=== PATIENT | female | born 1970 | race African-American/Black ===

== ENCOUNTER 2016-12-11 07:36 | Inpatient (IN) ==
[2016-12-11] MEDS ORDERED: ASPIRIN 325 MG TABLET PO STA ×2 (08:04→09:22)
[2016-12-11] MEDS ORDERED: ONDANSETRON 4 MG/2 ML VIAL IV PRN (08:04)
[2016-12-11] MEDS ORDERED: ALUM/MAG/SIMETH/LIDO VISC 1:1 30 ML BOTTLE PO STA (08:04)
[2016-12-11] MEDS ORDERED: ENOXAPARIN 100 MG/ML SYRINGE SUBCUT STA (08:04)
[2016-12-11] MEDS ORDERED: NITROGLYCERIN 2% OINT 1 INCH/GM PACK TOP STA (08:04)
[2016-12-11] MEDS ORDERED: MORPHINE 2 MG/1 ML SYRINGE IV PRN (08:04)
[2016-12-11] MEDS ORDERED: ENOXAPARIN 120 MG/0.8 ML SYRINGE SUBCUT ONE (08:09)
[2016-12-11] MEDS ORDERED: MORPHINE 2 MG/1 ML SYRINGE ONE (08:10)
[2016-12-11] MEDS ORDERED: ALUM/MAG/SIMETH/LIDO VISC 1:1 30 ML BOTTLE PO ONE (08:10)
[2016-12-11] MEDS ORDERED: ASPIRIN 325 MG TABLET ONE (08:10)
[2016-12-11] MEDS ORDERED: NITROGLYCERIN 2% OINT 1 INCH/GM PACK TOP ONE (08:10)
[2016-12-11] MEDS ORDERED: ONDANSETRON 4 MG/2 ML VIAL ONE (08:10)
[2016-12-11 08:14] LABS: Basophils # 0.1 10*3/uL (0.0-0.2); Basophils % 0.5 % (0.0-0.8); Eosinophils # 0.1 10*3/uL (0.0-0.87); Eosinophils % 1.1 % (0.00-10.9); Hematocrit 45.4 VOL% (35.7-47.0); Immature Granulocytes % 0.4 %; Immature Granulocytes Absolute 0.04 #; Lymphocytes # 2.3 10*3/uL (1.4-4.0); Lymphocytes % 20.7 % (21.3-54.2); Mean Corpuscular HGB Conc 35.2 GM/DL (32-36); Mean Corpuscular Hemoglobin 29 PG (27-34); Mean Corpuscular Volume 81.7 FL (87-102); Mean Platelet Volume 10.8 FL (9.6-12.0); Monocytes # 0.5 10*3/uL (0.11-0.8); Monocytes % 4.8 % (1.7-12.7); Neutrophils # 7.9 10*3/uL (1.4-7.4); Neutrophils % 72.5 % (38.7-73.9); Platelet Count 220 T/CUMM (130-400); Red Blood Count 5.56 MC/CUMM (3.8-5.5); Red Cell Distribution Width 12.6 % (9.3-17.3); White Blood Count 10.9 T/CUMM (4-12)
--- NOTE | 2016-12-11 08:24 | Emergency Department Note ---
Juan Lacy Manpreet, am scribing for, and in the presence of, Jarocho Thompson MD 08: 17. Donna Lacy James D, MD, personally performed the services described in this documentation, ascribed by Raghavendra Martinez in my presence, and it is both accurate and complete 819 . Arrival - Arrival Chief Complaint: Chest Pain Stated Complaint: chest pain,sob ED Nursing Triage Note: Midsternal chest pain with SOB onset on night - Mode of Arrival: Wheelchair Limitations: No Limitations Source: Patient - History of Present Illness HPI Narrative: Pt is a 46 y/o female, with PMHx HTN and NIDDM, who presents to the ED with non- radiating, burning, and tightening CP with SOB that began on Wednesday night (). Pt took a Tums which relieved the pain in the AM but worsened last night when she magdalena to lay down. Pt c/o dry cough and reports of smoking half pack of cigarettes daily. Pt's PCP is Dr. Hou. No other pains/complaints reported to the ED. Onset (ago): day(s) (12/10/16) Consistency: constant Severity: moderate Severity scale (1-10): 3 Quality: burning, other (Tight) Date of Last Menstrual Period: hyster Allergies/Adverse Reactions: Allergies Allergy/AdvReac Type Severity Reaction Status Date / Time Penicillins Allergy RASH Verified 05/11/15 15:27 Home Medications: Home Medications Medication Instructions Recorded Confirmed Type Clindamycin Cap [Cleocin Cap] 300 mg PO Q6HR 10 Days 05/06/15 Rx HYDROcodone/ACETAMIN 5-325 [[place] 1 tablet PO Q6H #14 tablet 05/06/15 Rx 5-325] Review of System - Review of System 12 point system: reviewed and no additional remarkable complaints except as stated - Review of System Constitutional: Absent: chills, diaphoresis, fever Respiratory: Present: cough, respiratory distress. Absent: wheezing Cardiovascular: Present: chest pain Gastrointestinal: Absent: abdominal pain, nausea, vomiting, diarrhea Genitourinary female: Absent: dysuria Musculoskeletal: Absent: arm pain, back pain Neurological: Absent: headache, weakness, numbness, paresthesias Medical,Surgical,& Family Hx - Medical History Cardio: History of: Hypertension Endocrine: History of: Diabetes Mellitus (NIDDM) - Social History Smoking Status: Current every day smoker Frequency of Alcohol Use: None Type of Drug Use: None Exam Vital Signs: Vital Signs Temperature 97.1 F L 12/11/16 07:39 Pulse Rate 102 H 12/11/16 07:39 Respiratory Rate 22 12/11/16 08:24 Blood Pressure 131/106 12/11/16 07:39 O2 Sat by Pulse Oximetry 98 12/11/16 07:39 GENERAL: This is a well-nourished well-developed morbidly obese black female in no apparent distress. VITAL SIGNS: Reviewed HEENT: Head is atraumatic and normocephalic. Pupils are equal round react to light. Extraocular movements are intact. Oropharynx is benign with moist mucous membranes. NECK: Neck is soft and supple without tenderness. There are no masses. There is no lymphadenopathy. LUNGS: Lungs are clear to auscultation. Chest rises symmetrically. There is no chest wall tenderness. CV: Heart is regular rate and rhythm without murmurs rubs or gallops. ABDOMEN: Abdomen is soft, nontender to palpation. There are no abdominal abnormal masses palpated. There is no organomegaly. Bowel sounds are present and active. SKIN: Skin is warm and dry. No rash. EXTREMITIES: Patient has full range of motion without tenderness. There is no pedal edema. NEUROLOGIC: Awake alert and oriented 4. Cranial nerves II through XII are grossly intact. Motor is 5 over 5 in all extremities bilaterally. Deep tendon reflexes are 2+ and bilaterally equal. Course Course Narrative: Patient was given Lovenox, aspirin, morphine, Zofran, and will be taken to the [facility] for possible PCI. - Consultations Consultation #1: Discussed with Dr. Phoenix. Patient will be taken to the [facility]. Time: 08:55 Results - Labs CBC & BMP: 12/11/16 07:53 12/11/16 07:53 Lab Results: I have reviewed the patients labs Labs: Laboratory Tests 12/11/16 07:53 Troponin I 8.480 H - EKG EKG results: interpreted by ERMD - Impressions EKG: Normal sinus rhythm with sinus arrhythmia, rate 79, low voltage QRS, old inferior MS, nonspecific ST-T wave changes - Diagnostic Findings Procedure: Chest x-ray: image reviewed by me (No infiltrates, no pleural effusion) Critical Care Time Critical Care Time: Yes Total Critical Care Time: 60 Disposition Clinical Impression: Chest pain, Diabetes mellitus, Essential hypertension Case discussed with: patient Disposition: Still a Patient Condition: Stable
[2016-12-11 08:36] LABS: Albumin 3.7 G/DL (3.4-5.0); Bilirubin,Total 0.8 MG/DL (0.2-1.0); Calcium 10.1 MG/DL (8.5-10.1); Magnesium 1.8 MG/DL (1.8-2.4); Osmolality,Calculated 281.2 MOS/KG (273-304); Potassium 4.2 MMOL/L (3.5-5.1); Total Protein 7.4 G/DL (6.4-8.3)
[2016-12-11 08:39] LABS: PT Patient Result 10.3 SECS; Partial Thromboplastin Time 27.9 SECS (0-40)
[2016-12-11] MEDS ORDERED: MORPHINE 2 MG/1 ML SYRINGE IV STA (08:54)
[2016-12-11 08:55] LABS: Apearance,Urine Slightly Hazy (Clear); Bacteria,Urine Occasional /HPF (Few); Bilirubin,Urine Negative (Negative); Blood, Urine Small mg/dL (Negative); Glucose,Urine (UA) >=500 mg/dL (Negative); Ketones,Urine 20 mg/dL (Negative); Nitrite,Urine Negative (Negative); Protein,Urine Negative; RBC,Urine 4 /HPF (0-4); Squamous Epithelial Cell,Urine Occasional /HPF (0-10); Urine Color Yellow (Yellow); Urine Specific Gravity 1.023 (1.001-1.035); Urine Urobilinogen < 2.0 EU/DL (0.2-1.0); WBC,Urine 1 /HPF (0-6)
--- NOTE | 2016-12-11 08:59 | XRay Report ---
XR chest 2V Indication: Chest pain Comparison: None available Findings: The heart and mediastinum are normal in size and configuration. The pulmonary vascularity is normal in caliber. No lung infiltrates, effusions, pneumothorax or other abnormality is demonstrated. Impression: Normal chest x-ray PROCEDURE INTERPRETED AT [facility] Final Report Signed by: Dr. Frank Gonzalez
[2016-12-11 09:00] LABS: Barbiturates Screen,Urine Negative (Negative); Benzodiazepines Screen,Urine Negative (Negative); Cannabinoid Screen,Urine Negative (Negative); Opiate Screen,Urine Negative (Negative); Phencyclidine Screen,Urine Negative (Negative)
[2016-12-11] MEDS ORDERED: METOPROLOL TARTRATE 5 MG/5 ML VIAL IV ONE (09:14)
[2016-12-11] MEDS ORDERED: MAGNESIUM SULF RIDER 2 GM in PREMIX 1 EACH IV PRN (09:22)
[2016-12-11] MEDS ORDERED: POTASSIUM CHLORIDE RIDER 10 MEQ in PREMIX 1 EACH IV PRN (09:22)
[2016-12-11] MEDS ORDERED: METOPROLOL TARTRATE 5 MG/5 ML VIAL IV STA ×2 (09:22→09:39)
[2016-12-11] MEDS ORDERED: diphenhydrAMINE CAP 50 MG CAPSULE PO ONE (09:24)
[2016-12-11] MEDS ORDERED: DIAZEPAM 5 MG TABLET PO ONE (09:25)
--- NOTE | 2016-12-11 09:33 | Cardiology History & Physical ---
Assessment and Plan - Time spent with patient Time spent with patient: Greater than 30 minutes Time spent discussing smoking cessation with patient: 3 to 10 minutes (1) Non-STEMI (non-ST elevated myocardial infarction) Status: Acute Assessment and plan: SEE PLAN OF CARE LISTED BELOW Current Visit: Yes (2) Dyslipidemia Status: Chronic Assessment and plan: SEE PLAN OF CARE LISTED BELOW Current Visit: Yes (3) Obesity Status: Acute Current Visit: Yes (4) Tobacco use Status: Chronic Assessment and plan: SEE PLAN OF CARE LISTED BELOW Current Visit: Yes (5) Sleep disorder Status: Chronic Assessment and plan: SEE PLAN OF CARE LISTED BELOW Current Visit: Yes (6) Diabetes mellitus Status: Chronic Assessment and plan: SEE PLAN OF CARE LISTED BELOW Current Visit: Yes (7) Essential hypertension Status: Chronic Assessment and plan: SEE PLAN OF CARE LISTED BELOW Current Visit: Yes History of Present Illness Chief complaint: chest pain, NSTEMI History of present illness: [facility]: DR. PHOENIX (NEW) Patient is being seen in the emergency department Ms. Loo, 46BF, with risk factors significant for: Hypertension, dyslipidemia , diabetes, tobaccoism, obesity and sedentary lifestyle. Presented to the ED of [facility] this morning after experiencing stuttering chest pain since Wednesday. Chest pain is located in the mid and left chest area radiating to her neck. Associated with shortness of breath, diaphoresis. Denies nausea or vomiting. She can identify no aggravating nor any alleviating factors. At its worst, discomfort is 7 on a scale of 1-10. Currently a 2 on a scale of 1-10. Initially, chest discomfort, described as "squeezing and tightness," began Wednesday evening and she thought this may be heartburn. She took several TUMS and the discomfort eventually resolved. However, continued to have stuttering pain throughout the next several days. This morning, he became so intense she felt as if she should be evaluated in the emergency department. On arrival, troponin is noted to be > 8, EKG does not reflect STEMI but is abnormal and concerning for recent ID. Patient has received Aspirin, therapeutic dose of Lovenox, Nitropaste, Lopressor IV. Labs are stable. Denies a history of vomiting of blood or passing blood in her stool. She denies an allergy to IVP dye or shellfish. No upcoming surgeries are planned. Patient has had tubal ligation. Urine drug screen is pending but denies a history of illicit drug use. Will further discuss with Dr. Phoenix and await additional recommendations. IMPRESSION/PLAN: 1. NSTEMI - patient has received the ACS protocol and is being prepared for cardiac catheterization peer 2. HYPERTENSION - will adjust medications accordingly during the hospital stay 3. DYSLIPIDEMIA - fasting lipid profile. Patient has been diagnosed with dyslipidemia but tells me she has not taken statin drugs. 4. DIABETES - hold Metformin. Sliding scale during hospital stay. Diabetic counseling prior to discharge 5. TOBACCOISM - greater than 5 minutes was spent today discussing the merits of tobacco cessation 6. SLEEP DISORDER - patient has symptoms of sleep apnea per her who is present. She will need outpatient evaluation for sleep disorder. 7. OBESITY - dietary counseling prior to discharge Home Medications Medication Instructions Recorded Confirmed Type Clindamycin Cap [Cleocin Cap] 300 mg PO Q6HR 10 Days 05/06/15 Rx HYDROcodone/ACETAMIN 5-325 [[place] 1 tablet PO Q6H #14 tablet 05/06/15 Rx 5-325] Allergies Allergy/AdvReac Type Severity Reaction Status Date / Time Penicillins Allergy RASH Verified 05/11/15 15:27 Review of systems: REVIEW OF SYSTEMS: - Constitutional Constitutional: Present: Fatigue. Heavy snoring and holding breath while sleeping. Absent: syncope, anorexia, night sweats - EENT Eyes: Absent: blurry vision, loss of vision, diplopia Ears: Absent: decreased hearing, ear pain, ear discharge - Cardiovascular Cardiovascular: Present: chest pain with exertion and chest pain at rest. Recent worsening dyspnea on exertion. Denies edema, palpitations. Absent: chest pain with deep breath, claudication - Respiratory Respiratory: Present: ARTIS, cough. Absent: wheezing, hemoptysis, change in phlegm color - Gastrointestinal Gastrointestinal: Present: constipation. Absent: abdominal pain, hematemesis , hematochezia, melena, change in bowel habits, nausea - Genitourinary Genitourinary: Absent: difficulty urinating, dysuria, urinary hesitancy, flank pain - Musculoskeletal Musculoskeletal: Present: back pain Absent: joint swelling, muscle cramps, muscle weakness - Neurological Neurological: Present: normal gait without frequent falls. Absent: dizziness, hemiparesis - Psychiatric Psychiatric: Absent: anxiety, depression, difficulty concentrating - Endocrine Endocrine: Present: fatigue. Absent: cold intolerance, heat intolerance, polyuria, polyphagia, polydipsia - Hematologic/Lymphatic Hematologic/Lymphatic: Present: easy bruising. Absent: easy bleeding, easy bruisability -Integumentary Integumentary: Absent: lesions, rashes, skin breakdown Medical,Surgical,& Family Hx - Medical History Cardio: History of: Hypertension No history of: Cardiac Dysrhythmia, CAD, ID Endocrine: History of: Diabetes Mellitus (NIDDM) - Social History Smoking Status: Current every day smoker Have you smoked in the last 12 months: Yes Time spent discussing smoking cessation with patient: 3 to 10 minutes Frequency of Alcohol Use: None Type of Drug Use: None Marital Status: Lives With:: Spouse Functional capacity: independent ambulation Cardiology Physical Exam - Constitutional Vitals: Vital Signs Temp Pulse Resp BP Pulse Ox 97.1 F L 102 H 22 131/106 98 12/11/16 07:39 12/11/16 07:39 12/11/16 08:24 12/11/16 07:39 12/11/16 07:39 Intake and Output 12/10/16 12/11/16 12/11/16 23:59 07:59 15:59 Other: Weight 119.748 kg Patient Weight 12/11/16 23:59 Weight 119.748 kg Exam: General: [Appears well with no apparent distress.] [Pleasant and cooperative. ] [Appears comfortable.] HEENT: [PERRL, normocephalic, atraumatic. Mucous membranes moist. No jaundice noted. Conjunctiva moist and clear, sclerae anicteric] Mallampati Airway Class III. Next circumference greater than 44 cm. Neck: Unable to assess for JVD due to habitus. No thyromegaly or lymphadenopathy noted. No carotid bruit appreciated Cardiac: [Regular rate and rhythm.] [No obvious murmur rub or gallop.] Lungs: [Clear to auscultation without accessory muscle use to assist the respiratory pattern.] Oxygen in use via nasal cannula Abdomen: Soft, bowel sounds normoactive. Nontender and nondistended. No abdominal bruit or thrill noted. No masses noted. Musculoskeletal: No fluid collection. Decreased range of motion is noted. Extremities: No clubbing, cyanosis noted. [ No edema noted.] Upper extremity pulses 2+. Lower extremity pulses 2+. Capillary refill less than 3 seconds. Skin: No unusual lesions or rashes. No skin breakdown appreciated. Neuro: Awake, alert and oriented 3. Moves all extremities well without hemiparesis or paralysis. No essential tremor is appreciated. Result/EKG - Labs CBC & BMP: 12/11/16 07:53 12/11/16 07:53 Lab Results: I have reviewed the past 24 hour labs Labs: Laboratory Results - last 24 hr 12/11/16 12/11/16 12/11/16 07:53 07:53 07:53 WBC 10.9 RBC 5.56 H Hgb 16.0 Hct 45.4 MCV 81.7 L MCH 29 MCHC 35.2 RDW 12.6 Plt Count 220 MPV 10.8 Neut % (Auto) 72.5 Lymph % (Auto) 20.7 L [place] % (Auto) 4.8 Eos % (Auto) 1.1 Baso % (Auto) 0.5 Neut # (Auto) 7.9 H Lymph # (Auto) 2.3 [place] # (Auto) 0.5 Eos # (Auto) 0.1 Baso # (Auto) 0.1 Immature Gran % 0.4 Nucleated RBC % 0.0 Immature Gran # 0.04 Nucleated RBCs # 0.00 Immature Plt Fraction 0.0 INR PT Patient/Control Mix Circ Anticoag PTT Sodium 134 L Potassium 4.2 Chloride 100 Carbon Dioxide 22 Anion Gap 16.2 H BUN 9 Creatinine 0.80 GFR Calculation 134 BUN/Creatinine Ratio 11.00 Glucose 367 H Calculated Osmolality 281.2 Calcium 10.1 Magnesium 1.8 Total Bilirubin 0.80 AST 73 H ALT 25 Alkaline Phosphatase 140 H Troponin I 8.480 H Total Protein 7.4 Albumin 3.7 Globulin 3.7 H Albumin/Globulin Ratio 1.0 L Urine Color Urine Appearance Urine pH Ur Specific [place] Urine Protein Urine Glucose (UA) Urine Ketones Urine Blood Urine Nitrate Urine Bilirubin Urine Urobilinogen Urine Leukocytes Urine RBC Urine WBC Ur Squamous Epith Cells Urine Bacteria Ur Culture Indicated? Urine Test Urine Opiates Screen Ur Barbiturates Screen Ur Phencyclidine Scrn U Amphetamine/Methamph U Benzodiazepines Scrn U Cocaine Metab Screen U Cannabinoids Screen 12/11/16 12/11/16 12/11/16 08:23 08:23 08:23 WBC RBC Hgb Hct MCV MCH MCHC RDW Plt Count MPV Neut % (Auto) Lymph % (Auto) [place] % (Auto) Eos % (Auto) Baso % (Auto) Neut # (Auto) Lymph # (Auto) [place] # (Auto) Eos # (Auto) Baso # (Auto) Immature Gran % Nucleated RBC % Immature Gran # Nucleated RBCs # Immature Plt Fraction INR 1.0 PT Patient/Control Mix 10.3 Circ Anticoag PTT 27.9 Sodium Potassium Chloride Carbon Dioxide Anion Gap BUN Creatinine GFR Calculation BUN/Creatinine Ratio Glucose Calculated Osmolality Calcium Magnesium Total Bilirubin AST ALT Alkaline Phosphatase Troponin I Total Protein Albumin Globulin Albumin/Globulin Ratio Urine Color Yellow Urine Appearance Slightly hazy Urine pH 6.0 Ur Specific [place] 1.023 Urine Protein Negative Urine Glucose (UA) >=500 Urine Ketones 20 Urine Blood Small Urine Nitrate Negative Urine Bilirubin Negative Urine Urobilinogen < 2.0 H Urine Leukocytes Small H Urine RBC 4 Urine WBC 1 Ur Squamous Epith Cells Occasional Urine Bacteria Occasional Ur Culture Indicated? Results to follow Urine Test Urine Opiates Screen Negative Ur Barbiturates Screen Negative Ur Phencyclidine Scrn Negative U Amphetamine/Methamph Negative U Benzodiazepines Scrn Negative U Cocaine Metab Screen Negative U Cannabinoids Screen Negative 12/11/16 09:06 WBC RBC Hgb Hct MCV MCH MCHC RDW Plt Count MPV Neut % (Auto) Lymph % (Auto) [place] % (Auto) Eos % (Auto) Baso % (Auto) Neut # (Auto) Lymph # (Auto) [place] # (Auto) Eos # (Auto) Baso # (Auto) Immature Gran % Nucleated RBC % Immature Gran # Nucleated RBCs # Immature Plt Fraction INR PT Patient/Control Mix Circ Anticoag PTT Sodium Potassium Chloride Carbon Dioxide Anion Gap BUN Creatinine GFR Calculation BUN/Creatinine Ratio Glucose Calculated Osmolality Calcium Magnesium Total Bilirubin AST ALT Alkaline Phosphatase Troponin I Total Protein Albumin Globulin Albumin/Globulin Ratio Urine Color Urine Appearance Urine pH Ur Specific [place] Urine Protein Urine Glucose (UA) Urine Ketones Urine Blood Urine Nitrate Urine Bilirubin Urine Urobilinogen Urine Leukocytes Urine RBC Urine WBC Ur Squamous Epith Cells Urine Bacteria Ur Culture Indicated? Urine Test Negative Urine Opiates Screen Ur Barbiturates Screen Ur Phencyclidine Scrn U Amphetamine/Methamph U Benzodiazepines Scrn U Cocaine Metab Screen U Cannabinoids Screen - Diagnostic Findings Procedure: Chest x-ray: report reviewed by me - EKG EKG results: interpreted by me EKG shows: tachycardia, sinus rhythm
[2016-12-11 09:59] LABS: Risk Ratio 4.28; VLDL CHOLESTEROL 19.6 MG/DL
[2016-12-11] MEDS ORDERED: LIDOCAINE 1%/EPI INJ 20 ML VIAL ONE (10:01)
[2016-12-11] MEDS ORDERED: HEPARIN/NACL 0.9% 2 UNITS/ML 1,000 ML IV ONE (10:01)
[2016-12-11 10:05] LABS: Free T4 (Free Thyroxine) 1.16 NG/DL (0.76-1.46); Thyroid Stimulating Hormone 0.727 uIU/ml (0.358-3.74)
[2016-12-11] MEDS ORDERED: fentaNYL 100 MCG/2 ML VIAL ONE (10:09)
[2016-12-11] MEDS ORDERED: MIDAZOLAM 2 MG/2 ML VIAL ONE (10:09)
[2016-12-11] MEDS ORDERED: ENOXAPARIN 60 MG/0.6 ML SYRINGE ONE (10:36)
[2016-12-11] MEDS ORDERED: EPTIFIBATIDE 75 MG/100 ML BOTTLE IV ONE (10:40)
[2016-12-11] MEDS ORDERED: EPTIFIBATIDE 20,000 MCG/10 ML VIAL ONE (10:40)
[2016-12-11] MEDS ORDERED: TICAGRELOR 90 MG TABLET ONE (10:57)
[2016-12-11] MEDS ORDERED: VANCOMYCIN 500 MG VIAL ONE (11:03)
[2016-12-11] MEDS ORDERED: NITROGLYCERIN SL 0.4 MG TABLET SL PRN (11:36)
[2016-12-11] MEDS ORDERED: DEXTROSE 50% 25 GM/50 ML SYRINGE IV PRN ×2 (11:36→11:59)
[2016-12-11] MEDS ORDERED: GLUCAGON 1 MG VIAL IM PRN ×2 (11:36→11:59)
--- NOTE | 2016-12-11 11:36 | Cardiac Catheterization ---
Date of Procedure:: 12/11/16 Pre-op Diagnosis: Non-ST elevation myocardial infarction Post-op diagnosis: same Procedure: Procedures performed: #1 left heart catheterization #2 coronary angiography #3 attempted wiring of the distal right coronary stenosis without success #4 percutaneous intervention to the proximal circumflex coronary artery with a 2.5 x 12 mm Zions drug-eluting stent with a good angiographic result #5 left ventriculography #6 right femoral sheath angiography #7 Angio-Seal closure right femoral arteriotomy site After obtaining informed consent the patient brought to the Patient Accounts Clerk where the right groin was prepped and draped in the usual sterile manner. After local anesthesia and intravenous sedation a needle stick was made to the right femoral artery and a 6 Lithuanian sheath was positioned without difficulty. A Magda left catheter was advanced over a guidewire under fluoroscopic control to the ascending aorta where angiography of left coronary artery was undertaken in multiple views. After adequate angiograms of the left coronary were obtained this catheter was withdrawn and an AMRM right coronary catheter was advanced over a guidewire under fluoroscopic control to the ascending aorta where angiography of the right coronary artery was undertaken in multiple views. After adequate angiograms of the right coronary were obtained this catheter was withdrawn and we attempted PCI of the distal right coronary and proceeded with stenting of the circumflex coronary as described below. After completion of the PCI a pigtail ventriculographic catheter was advanced over a guidewire under fluoroscopic control to the ascending aorta where it was passed across the aortic valve and intraventricular hemodynamics were measured. Patient underwent left ventriculography injecting 35 mL of contrast at 12 mL/s. This was performed from the right anterior oblique projection. After ventriculography this catheter was pulled back from the ventricle to the aorta under hemodynamic monitoring and removed. We elected to proceed with percutaneous intervention of the right coronary artery. A Magda right guide was advanced over a guidewire under fluoroscopic control to the ascending aorta where the right coronary artery was engaged. We attempted wiring the distal right coronary without success. We attempted multiple passes and were unable to get the wire distal. At this point the wire was pulled back into the guide and removed the guide was then removed from the sheath. A Magda left guide was advanced over guidewire under fluoroscopic control the ascending aorta where the left main coronary was engaged. An 014 BMW wire was advanced to the distal circumflex coronary artery and a 2.5 x 12 mm Zions drug-eluting stent was advanced to the area stenosis and deployed to maximum 14 nat. There was good resolution of the stenosis with PAUL grade III flow down the vessel noted. After ascertaining good result in several views the delivery balloon and guidewire removed from the guide. The guide was removed from the sheath. The procedure continued as outlined above. After completion of ventriculogram and removal of the pigtail catheter, the patient underwent right femoral sheath angiography which demonstrated anatomy appropriate for Angio-Seal closure. This was performed without difficulty and good hemostasis was obtained. Hemodynamics: Please see the accompanying data sheet Coronary angiography: Left coronary artery: The left main coronary artery is well-developed and free of significant obstructing lesions. The circumflex coronary artery is a large nondominant vessel it possesses an area of 95% stenosis in its proximal portion. The distal vessel is large and free of significant obstructing lesions. The left anterior descending coronary artery is a large vessel that extends to the apex of the ventricle. The LAD is free of significant obstructing lesions. There is a moderate sized diagonal and has a 80-90% area stenosis at its origin. The remainder of the LAD and its branches are free of significant obstructing lesions. Right coronary artery: The right coronary artery is a large dominant vessel that is subtotally occluded beyond a proximal posterior branch. It severely diseased beyond the origin of this branch such that the posterior laterals are faintly visualized. The PDA is filled via collaterals from the left coronary system. No antegrade filling of the PDA is noted on injection of the pamunkey right coronary artery. Percutaneous coronary intervention: We initially attempted wiring the distal right coronary artery without success. I was not able to get the wire into the PDA. For that reason we abandoned this attempt. My assumption was that this was an old occlusion with good collaterals and was not the culprit vessel. I felt that the circumflex stenosis was a culprit lesion. After positioning the left coronary guide and accessing the circumflex with a guidewire we perform PCI as outlined above and obtained a good angiographic result. There was PAUL grade III flow down the vessel noted at the end procedure. Left ventriculography: After injection of contrast in the left ventricle it is noted be of normal size inferobasal hypo-/akinesis. This is a small area. Overall ejection fraction is in the 50-55% range. Right femoral sheath angiography: After injection of contrast in the right femoral arterial sheath it appears to enter the common femoral above the bifurcation. No evidence of significant disease of the distal iliac, common femoral or bifurcation be noted based on this limited angiographic study. Conclusions: 1: Successful percutaneous intervention of the proximal circumflex using a 2.5 x 12 mm Zions drug-eluting stent drug-eluting stent 2: Distal right and diagonal disease for continued medical therapy and risk factor modification. 3: Inferobasal hypokinesis with overall ejection fraction near normal 4: Angio-Seal closure right from arteriotomy site Discussion and recommendations: The patient presents with chest discomfort and a non-ST elevation myocardial infarction. 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 She is undergone stenting of the proximal circumflex with a good angiographic result and our plan will be to proceed with close observation and aggressive medical therapy. Our findings have been reviewed with the patient and with her family. Surgeon / Physician: Delvis Phoenix - Medications / Follow-up
[2016-12-11] MEDS: ASPIRIN EC 81 MG TABLET PO SCH (11:57)
[2016-12-11] MEDS ORDERED: EPTIFIBATIDE 75 MG/100 ML BOTTLE IV SCH (12:00)
[2016-12-11] MEDS ORDERED: SODIUM CHLORIDE 0.45% 1,000 ML IV SCH (12:00)
[2016-12-11] MEDS ORDERED: VANCOMYCIN INJ 500 MG in SODIUM CHLORIDE 0.9% 100 ML IV ONE (12:00)
--- NOTE | 2016-12-11 12:14 | EKG Report ---
Stationary ECG Study [facility] Test Date: 12/11/2016 12:14:54 PM Pat Name: BALA ROSARIO Department: Room: 107 Gender: F Exit Booth Agent: JAMEE : [id number] Requested by: Jarocho Dominguez Order Number: [id number] Adriana MD: ALEX BARBOSA Intervals [place] Rate: 75 P: 14 SD: 187 QRS: 41 QRSD: 81 T: -7 QT: 403 QTc: 432 Interpretive Statements SINUS RHYTHM WITH SINUS ARRHYTHMIA LOW QRS VOLTAGE IN PRECORDIAL LEADS Electronically Signed On 12-11-16 17:12:24 CDT by ALEX BARBOSA [email or web address]
--- NOTE | 2016-12-11 13:35 | Discharge Summary ---
Hospital Course - Hospital Course Hospital Course: Dr. Phoenix, please reconcile and transmit her discharge meds prior to completing this discharge summary. Pharmacy was not available when I completed this discharge summary. TIRE ADJUSTER: DR. PHOENIX (NEW) SUMMARY: Ms. Loo, 46BF, with risk factors significant for: Hypertension, dyslipidemia, diabetes, tobaccoism, obesity and sedentary lifestyle. Presented to the ED of [facility] December 11, 2016 with NSTEMI. She was taken urgently to the cardiac catheterization lab where Dr. Phoenix performed heart catheterization with the following impression noted: CONCLUSIONS: 1: Successful percutaneous intervention of the proximal circumflex using a 2.5 x 12 mm Zions drug-eluting stent drug-eluting stent 2: Distal right and diagonal disease for continued medical therapy and risk factor modification. 3: Inferobasal hypokinesis with overall ejection fraction near normal 4: Angio-Seal closure right from arteriotomy site DISCUSSION AND RECOMMENDATIONS: The patient presents with chest discomfort and a non-ST elevation myocardial infarction. 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 She is undergone stenting of the proximal circumflex with a good angiographic result and our plan will be to proceed with close observation and aggressive medical therapy. Our findings have been reviewed with the patient and with her family. 2016: Patient has done well without complaints of chest pain, heaviness or tightness. Right groin is soft, free of hematoma or bruit. She has been ambulating without difficulty. Labs are stable as are vital signs. Having that she is met maximal medical therapy, patient is being discharged home in stable condition. She will be given a 2-3 week follow-up with Dr. Phoenix. At that visit the following will be obtained: BMP, magnesium, CBC, EKG. One week prior to the visit with Dr. Phoenix, echocardiogram will be ordered RE: [facility]. Patient is being scheduled for outpatient sleep study evaluation with Dr. Aguilar. Cardiac discharge medications include the following: Aspirin 81 mg orally daily Brilinta 90 mg orally twice daily. Patient is being given a Brilinta prescription card Metoprolol tartrate 50 mg orally twice daily Losartan 12.5 mg orally daily Crestor 40 mg orally each evening Prilosec 20 mg orally daily She will resume her other preadmission noncardiac medications. - Time spent with patient Time with patient DS: Greater than 30 minutes Time spent discussing smoking cessation with patient: 3 to 10 minutes Diagnosis - Discharge Diagnosis (1) Non-STEMI (non-ST elevated myocardial infarction) Status: Resolved (2) Dyslipidemia Status: Chronic (3) Obesity Status: Chronic (4) Tobacco use Status: Chronic (5) Sleep disorder Status: Chronic (6) Diabetes mellitus Status: Chronic (7) Essential hypertension Status: Chronic Specialty Discharge - Follow Up or Referrals Follow up with: Delvis Phoenix MD [Physician] - (Follow-up with Dr. Phoenix in 2-3 weeks. At that visit she will need the following: BMP, magnesium, CBC and EKG. One week prior to visit with Dr. Phoenix she will need an echocardiogram RE: [facility], cardiac eval) Fay Aguilar MD [Physician] - (Outpatient sleep study evaluation soon as appointment is available) Discharge Plan - Discharge Data Disposition: Disch To Home/Self Care Condition at Discharge: Stable Discharge Diet: heart healthy Activity: other (Post cath expectations) Hygiene: other (Post cath expectations) Weight Bearing at Discharge: other (Post cath expectations) Driving: other (Post cath expectations) Contact your physician if you experience:: fever over 101, Difficulty voiding, Redness or swelling, Nausea/Vomiting, Shortness of breath, Bleeding, pain uncontrolled by pain medications - Discharge Medications New Losartan [Cozaar] 12.5 mg PO DAILY #30 tablet Metoprolol Tartrate Tab [Lopressor Tab] 50 mg PO BID #60 tablet Nitroglycerin Sl Tab [Nitrostat] 0.4 mg SL Q5M PRN #100 tablet PRN Reason: Chest Pain Pantoprazole Tab [Protonix Tab] 40 mg PO DAILY #30 tablet Ticagrelor [Brilinta] 90 mg PO BID #60 tablet Aspirin EC Tab 81 mg PO DAILY #30 tablet Rosuvastatin [Crestor] 40 mg PO BEDTIME #60 tablet Continue Pioglitazone HCl [Actos] 30 mg PO DAILY Glimepiride [Amaryl] 4 mg PO DAILY W/BREAKFAST Discontinued NIFEdipine [Nifedipine ER] 90 mg PO DAILY - Follow Up or Referral Follow Up: Fay Aguilar MD [Physician] - (Outpatient sleep study evaluation soon as appointment is available) Delvis Phoenix MD [Physician] - (Follow-up with Dr. Phoenix in 2-3 weeks. At that visit she will need the following: BMP, magnesium, CBC and EKG. One week prior to visit with Dr. Phoenix she will need an echocardiogram RE: [facility], cardiac eval) - Forms/Instructions Instructions: Myocardial Infarction (GEN), Left Heart Catheterization (DC), Heart Healthy Diet (GEN), Coronary Intravascular Stent Placement (DC) Additional Discharge Instructions: Please give patient Brilinta prescription card prior to discharge Exam - Constitutional Vitals: Period Temp Pulse Resp BP Sys/Patel Pulse Ox Last 24 Hr 97.8 F-98.3 F 60-108 13-23 91-162/63-96 Exam: General: [Appears well with no apparent distress.] [Pleasant and cooperative. ] [Appears comfortable.] HEENT: [PERRL, normocephalic, atraumatic. Mucous membranes moist. No jaundice noted. Conjunctiva moist and clear, sclerae anicteric] Neck: No JVD/HJR, no thyromegaly or lymphadenopathy noted. No carotid bruit appreciated Cardiac: [Regular rate and rhythm.] [No murmur rub or gallop.] Lungs: [Clear to auscultation without accessory muscle use to assist the respiratory pattern.] Oxygen in use via nasal cannula Abdomen: Soft, bowel sounds normoactive. Nontender and nondistended. No abdominal bruit or thrill noted. No masses noted. Musculoskeletal: No fluid collection. Decreased range of motion is noted. Extremities: Right groin soft, free of hematoma or bruit. No clubbing, cyanosis noted. [ No edema noted.] Upper extremity pulses 2+. Lower extremity pulses 2+. Capillary refill less than 3 seconds. Skin: No unusual lesions or rashes. No skin breakdown appreciated. Neuro: Awake, alert and oriented 3. Moves all extremities well without hemiparesis or paralysis. No essential tremor is appreciated. Discharge Results Procedures and tests throughout hospitalization: Pending Orders 12/11/16 Urine Culture Routine 12/11/16 09:31 CL heart Routine 12/11/16 11:40 MRSA Surveillence, Inf Control Routine 12/13/16 04:00 BMP w/ Mg [Basic Metabolic Panel w/Mg] IN AM 12/14/16 04:00 BMP w/ Mg [Basic Metabolic Panel w/Mg] IN AM Labs on day of discharge: Labs from last 24 hours 12/12/16 12/12/1612/12/17 04:33 04:33 04:33 WBC 10.9 RBC 5.11 Hgb 14.8 Hct 41.8 MCV 81.8 L MCH 29 MCHC 35.4 RDW 12.8 Plt Count 212 MPV 10.9 Neut % (Auto) 63.3 Lymph % (Auto) 27.3 [place] % (Auto) 7.3 Eos % (Auto) 1.2 Baso % (Auto) 0.5 Neut # (Auto) 6.9 Lymph # (Auto) 3.0 [place] # (Auto) 0.8 Eos # (Auto) 0.1 Baso # (Auto) 0.1 Immature Gran % 0.4 Nucleated RBC % 0.0 Immature Gran # 0.04 Nucleated RBCs # 0.00 Immature Plt Fraction 0.0 Sodium 138 Potassium 3.5 Chloride 105 Carbon Dioxide 25 Anion Gap 11.5 BUN 14 Creatinine 0.70 GFR Calculation 156 BUN/Creatinine Ratio 20.00 Glucose 226 H POC Glucose Calculated Osmolality 282.7 Calcium 8.9 Magnesium Troponin I 12.400 H D Triglycerides Cholesterol LDL Cholesterol VLDL Cholesterol HDL Cholesterol Heart Disease Risk Ratio Free T4 TSH 3rd Generation 12/12/16 12/11/16 12/11/16 04:33 20:04 16:03 WBC RBC Hgb Hct MCV MCH MCHC RDW Plt Count MPV Neut % (Auto) Lymph % (Auto) [place] % (Auto) Eos % (Auto) Baso % (Auto) Neut # (Auto) Lymph # (Auto) [place] # (Auto) Eos # (Auto) Baso # (Auto) Immature Gran % Nucleated RBC % Immature Gran # Nucleated RBCs # Immature Plt Fraction Sodium 139 Potassium 3.5 Chloride 105 Carbon Dioxide 27 Anion Gap 10.5 BUN 14 Creatinine 0.70 GFR Calculation 156 BUN/Creatinine Ratio 20.00 Glucose 207 H POC Glucose 299 H 301 H Calculated Osmolality 283.5 Calcium 8.7 Magnesium 2.1 Troponin I Triglycerides Cholesterol LDL Cholesterol VLDL Cholesterol HDL Cholesterol Heart Disease Risk Ratio Free T4 TSH 3rd Generation 12/11/16 12/11/16 08:23 08:23 WBC RBC Hgb Hct MCV MCH MCHC RDW Plt Count MPV Neut % (Auto) Lymph % (Auto) [place] % (Auto) Eos % (Auto) Baso % (Auto) Neut # (Auto) Lymph # (Auto) [place] # (Auto) Eos # (Auto) Baso # (Auto) Immature Gran % Nucleated RBC % Immature Gran # Nucleated RBCs # Immature Plt Fraction Sodium Potassium Chloride Carbon Dioxide Anion Gap BUN Creatinine GFR Calculation BUN/Creatinine Ratio Glucose POC Glucose Calculated Osmolality Calcium Magnesium Troponin I Triglycerides 98 Cholesterol 291 H LDL Cholesterol 195.0 VLDL Cholesterol 19.6 HDL Cholesterol 68 H Heart Disease Risk Ratio 4.28 Free T4 1.16 TSH 3rd Generation 0.727 Preliminary micro results at discharge 12/11/16 11:40 MRSA Surveillance Culture - Preliminary Nasal Passage No MRSA isolated. - Imaging and Cardiology Cardiology Procedure: report reviewed by me Procedure: Chest x-ray: report reviewed by me DS: Provider Date of admission: 12/11/16 08:58 Primary care physician: . No PCP Attending physician on admission: Delvis Phoenix MD Consults: 12/11/16 11:15 Consult to Cardiac Rehabilitation [CONS] Routine Reason for Cardiac Rehabilitation: Other Consult Comment: All of the above 12/11/16 11:36 Consult to Cardiac Rehabilitation [CONS] Routine Reason for Cardiac Rehabilitation: Risk Factor Modification Other Consult Comment: Evaluate and recommend 12/11/16 11:39 Consult to Cardiac Rehabilitation [CONS] Routine Reason for Cardiac Rehabilitation: Risk Factor Modification Other Consult Comment: Evaluate and recommend 12/11/16 12:05 Consult to Dietitian [CONS] Routine Reason for Dietitian: Other 12/11/16 12:13 Consult to Pastoral Services [CONS] Routine Comment: Pastoral Screen: Request Emergency Services Professional Visit Pastoral Screen Source of Request: Patient Discharging clinician: Lisa Helms NP
[2016-12-11] MEDS: INSULIN REGULAR 100 UNIT/ML SUBCUT SCH ×2 (16:47→20:29)
[2016-12-11] MEDS: METOPROLOL TARTRATE 50 MG TABLET PO SCH (20:25)
[2016-12-11] MEDS ORDERED: ROSUVASTATIN 20 MG TABLET PO SCH (21:00)
[2016-12-11] MEDS ORDERED: ZALEPLON 5 MG CAPSULE PO PRN (23:14)
[2016-12-12 04:53] LABS: Basophils # 0.1 10*3/uL (0.0-0.2); Basophils % 0.5 % (0.0-0.8); Eosinophils # 0.1 10*3/uL (0.0-0.87); Eosinophils % 1.2 % (0.00-10.9); Hematocrit 41.8 VOL% (35.7-47.0); Hemoglobin 14.8 GM/DL (12.0-16.0); Immature Granulocytes % 0.4 %; Immature Granulocytes Absolute 0.04 #; Lymphocytes % 27.3 % (21.3-54.2); Mean Corpuscular HGB Conc 35.4 GM/DL (32-36); Mean Corpuscular Hemoglobin 29 PG (27-34); Mean Corpuscular Volume 81.8 FL (87-102); Mean Platelet Volume 10.9 FL (9.6-12.0); Monocytes # 0.8 10*3/uL (0.11-0.8); Monocytes % 7.3 % (1.7-12.7); Neutrophils # 6.9 10*3/uL (1.4-7.4); Neutrophils % 63.3 % (38.7-73.9); Platelet Count 212 T/CUMM (130-400); Red Blood Count 5.11 MC/CUMM (3.8-5.5); Red Cell Distribution Width 12.8 % (9.3-17.3); White Blood Count 10.9 T/CUMM (4-12)
[2016-12-12 05:27] LABS: Calcium 8.7 MG/DL (8.5-10.1); Magnesium 2.1 MG/DL (1.8-2.4); Osmolality,Calculated 283.5 MOS/KG (273-304); Potassium 3.5 MMOL/L (3.5-5.1)
[2016-12-12 05:47] LABS: Calcium 8.9 MG/DL (8.5-10.1); Osmolality,Calculated 282.7 MOS/KG (273-304); Potassium 3.5 MMOL/L (3.5-5.1)
[2016-12-12] MEDS: INSULIN REGULAR 100 UNIT/ML SUBCUT SCH ×2 (07:49→12:25)
[2016-12-12] MEDS ORDERED: GLIMEPIRIDE 4 MG TABLET PO SCH (08:00)
[2016-12-12] MEDS ORDERED: PIOGLITAZONE 15 MG TABLET PO SCH (09:00)
[2016-12-12] MEDS ORDERED: LOSARTAN 25 MG TABLET PO SCH (09:00)
[2016-12-12] MEDS ORDERED: TICAGRELOR 90 MG TABLET PO SCH (09:00)
[2016-12-12] MEDS ORDERED: PANTOPRAZOLE 40 MG TABLET PO SCH (09:00)
[2016-12-12] MEDS: METOPROLOL TARTRATE 50 MG TABLET PO SCH (09:09)
[2016-12-12] MEDS: ASPIRIN EC 81 MG TABLET PO SCH (09:09)
--- NOTE | 2016-12-12 10:07 | EKG Report ---
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
--- NOTE | 2016-12-12 10:08 | EKG Report ---
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
[2016-12-12 12:14] VITALS: BP 121/82
== END 2016-12-12 14:13 | disposition home or self-care (01) | DRG 247 ==
LOC: N.ED 07:36 → N.EDINP 08:58 → N.ICU 09:41
PROVIDERS: ADMIT Internal Medicine Interventional Cardiology; ATTEND Internal Medicine Interventional Cardiology
PROC: CLCCHCL (ICD-10-PCS; 2016-12-11 14:45)

== ENCOUNTER 2017-01-23 06:52 | Inpatient (IN) ==
[2017-01-23] MEDS ORDERED: FUROSEMIDE 20 MG/2 ML VIAL ONE (07:08)
[2017-01-23] MEDS ORDERED: FUROSEMIDE 40 MG/4 ML VIAL ONE (07:08)
[2017-01-23] MEDS ORDERED: FUROSEMIDE 40 MG/4 ML VIAL IV STA (07:39)
[2017-01-23 07:56] LABS: Basophils # 0.1 10*3/uL (0.0-0.2); Basophils % 0.6 % (0.0-0.8); Eosinophils # 0.2 10*3/uL (0.0-0.87); Eosinophils % 2.1 % (0.00-10.9); Hematocrit 45.9 VOL% (35.7-47.0); Hemoglobin 15.1 GM/DL (12.0-16.0); Immature Granulocytes % 0.4 %; Immature Granulocytes Absolute 0.04 #; Lymphocytes # 2.3 10*3/uL (1.4-4.0); Lymphocytes % 22.4 % (21.3-54.2); Mean Corpuscular HGB Conc 32.9 GM/DL (32-36); Mean Corpuscular Hemoglobin 28 PG (27-34); Mean Corpuscular Volume 85.5 FL (87-102); Mean Platelet Volume 10.9 FL (9.6-12.0); Monocytes # 0.5 10*3/uL (0.11-0.8); Monocytes % 4.5 % (1.7-12.7); Neutrophils # 7.3 10*3/uL (1.4-7.4); Platelet Count 233 T/CUMM (130-400); Red Blood Count 5.37 MC/CUMM (3.8-5.5); Red Cell Distribution Width 13.5 % (9.3-17.3); White Blood Count 10.4 T/CUMM (4-12)
[2017-01-23 08:01] LABS: INR 0.9
[2017-01-23 08:16] LABS: Alanine Aminotransferase 28 U/L (13-56); Albumin 3.3 G/DL (3.4-5.0); Alkaline Phosphatase 102 U/L (45-117); Aspartate Amino Transferase 23 U/L (0-37); Bilirubin,Indirect 0.3 MG/DL (0.0-1.0); Blood Urea Nitrogen 20 MG/DL (7-18); Calcium 8.7 MG/DL (8.5-10.1); Glucose 256 MG/DL (74-106); Osmolality,Calculated 288.5 MOS/KG (273-304); Potassium 3.8 MMOL/L (3.5-5.1); Sodium 139 MMOL/L (136-145); Total Protein 7.4 G/DL (6.4-8.3)
[2017-01-23 08:17] LABS: Troponin I Only 0.131 NG/ML (0.00-0.045)
[2017-01-23] MEDS ORDERED: MAGNESIUM SULF RIDER 4 GM in PREMIX 1 EACH IV PRN (10:04)
[2017-01-23] MEDS ORDERED: GLUCAGON 1 MG VIAL IM PRN (10:04)
[2017-01-23] MEDS ORDERED: ONDANSETRON 4 MG/2 ML VIAL IV PRN (10:04)
[2017-01-23] MEDS ORDERED: MAGNESIUM SULF RIDER 2 GM in PREMIX 1 EACH IV PRN (10:04)
[2017-01-23] MEDS ORDERED: DEXTROSE 50% 25 GM/50 ML VIAL IV PRN (10:04)
[2017-01-23] MEDS ORDERED: PNEUMOCOCCAL VACCINE (13 VALENT) 0.5 ML SYRINGE IM ONE (11:16)
[2017-01-23] MEDS ORDERED: INFLUENZA VIRUS VACCINE 0.5 ML SYRINGE IM ONE (11:16)
[2017-01-23] MEDS ORDERED: METOPROLOL TARTRATE 25 MG TABLET PO ONE (11:50)
[2017-01-23] MEDS: ACETAMINOPHEN 325 MG TABLET PO PRN ×2 (12:41→22:11)
[2017-01-23] MEDS: ASPIRIN EC 81 MG TABLET PO SCH (12:41)
[2017-01-23] MEDS: ISOSORBIDE MONONITRATE 30 MG TABLET PO SCH (12:42)
[2017-01-23] MEDS: GLIMEPIRIDE 4 MG TABLET PO SCH ×2 (12:42→20:33)
[2017-01-23] MEDS: INSULIN LISPRO 100 UNIT/ML SUBCUT SCH ×3 (13:20→21:15)
[2017-01-23] MEDS: TICAGRELOR 90 MG TABLET PO SCH ×2 (14:09→20:33)
[2017-01-23] MEDS ORDERED: FUROSEMIDE 40 MG/4 ML VIAL IV SCH (16:00)
[2017-01-23] MEDS: FUROSEMIDE 40 MG/4 ML VIAL IV SCH (16:28)
[2017-01-23] MEDS: PANTOPRAZOLE 40 MG TABLET PO SCH ×2 (16:39→17:21)
[2017-01-23] MEDS: ROSUVASTATIN 20 MG TABLET PO SCH (20:33)
[2017-01-23] MEDS: METOPROLOL TARTRATE 25 MG TABLET PO SCH (20:33)
[2017-01-23] MEDS ORDERED: METOPROLOL TARTRATE 25 MG TABLET PO SCH (21:00)
[2017-01-23] MEDS: MELATONIN 3 MG TABLET PO PRN (22:12)
[2017-01-24 06:23] LABS: Basophils % 0.2 % (0.0-0.8); Eosinophils # 0.1 10*3/uL (0.0-0.87); Eosinophils % 1.4 % (0.00-10.9); Hematocrit 43.4 VOL% (35.7-47.0); Hemoglobin 14.5 GM/DL (12.0-16.0); Immature Granulocytes % 0.2 %; Immature Granulocytes Absolute 0.02 #; Lymphocytes # 2.2 10*3/uL (1.4-4.0); Lymphocytes % 26.8 % (21.3-54.2); Mean Corpuscular HGB Conc 33.4 GM/DL (32-36); Mean Corpuscular Hemoglobin 28 PG (27-34); Mean Corpuscular Volume 85.1 FL (87-102); Mean Platelet Volume 11.3 FL (9.6-12.0); Monocytes # 0.7 10*3/uL (0.11-0.8); Neutrophils % 62.4 % (38.7-73.9); Platelet Count 219 T/CUMM (130-400); Red Cell Distribution Width 13.7 % (9.3-17.3); White Blood Count 8.1 T/CUMM (4-12)
[2017-01-24 06:54] LABS: Potassium 4.3 MMOL/L (3.5-5.1)
[2017-01-24] MEDS: FUROSEMIDE 40 MG/4 ML VIAL IV SCH ×2 (08:10→16:11)
[2017-01-24] MEDS: METOPROLOL TARTRATE 25 MG TABLET PO SCH ×2 (08:11→20:47)
[2017-01-24] MEDS: GLIMEPIRIDE 4 MG TABLET PO SCH ×2 (08:11→20:47)
[2017-01-24] MEDS: ASPIRIN EC 81 MG TABLET PO SCH (08:11)
[2017-01-24] MEDS: TICAGRELOR 90 MG TABLET PO SCH ×2 (08:11→20:47)
[2017-01-24] MEDS: ISOSORBIDE MONONITRATE 30 MG TABLET PO SCH (08:12)
[2017-01-24] MEDS: INSULIN LISPRO 100 UNIT/ML SUBCUT SCH ×4 (08:12→20:48)
[2017-01-24] MEDS: LOSARTAN 25 MG TABLET PO SCH (08:12)
[2017-01-24] MEDS: PANTOPRAZOLE 40 MG TABLET PO SCH (08:12)
[2017-01-24] MEDS ORDERED: MAGNESIUM SULF RIDER 2 GM in PREMIX 1 EACH IV PRN (12:02)
[2017-01-24] MEDS ORDERED: POTASSIUM CHLORIDE RIDER 10 MEQ in PREMIX 1 EACH IV PRN (12:02)
[2017-01-24] MEDS ORDERED: DIAZEPAM 5 MG TABLET PO ONE (12:02)
[2017-01-24] MEDS: ENOXAPARIN 40 MG/0.4 ML SYRINGE SUBCUT SCH (16:11)
[2017-01-24] MEDS: ROSUVASTATIN 20 MG TABLET PO SCH (20:47)
[2017-01-24] MEDS: MELATONIN 3 MG TABLET PO PRN (20:47)
[2017-01-25 04:56] LABS: Hematocrit 43.4 VOL% (35.7-47.0); Hemoglobin 14.6 GM/DL (12.0-16.0); Lymphocytes % 32.7 % (21.3-54.2); Mean Corpuscular HGB Conc 33.6 GM/DL (32-36); Mean Corpuscular Hemoglobin 28 PG (27-34); Mean Corpuscular Volume 83.8 FL (87-102); Mean Platelet Volume 10.7 FL (9.6-12.0); Neutrophils % 55.1 % (38.7-73.9); Platelet Count 213 T/CUMM (130-400); Red Blood Count 5.18 MC/CUMM (3.8-5.5); Red Cell Distribution Width 13.5 % (9.3-17.3); White Blood Count 7.3 T/CUMM (4-12)
[2017-01-25 04:57] LABS: Basophils # 0.1 10*3/uL (0.0-0.2); Basophils % 0.7 % (0.0-0.8); Eosinophils # 0.2 10*3/uL (0.0-0.87); Eosinophils % 3.2 % (0.00-10.9); Immature Granulocytes % 0.3 %; Immature Granulocytes Absolute 0.02 #; Lymphocytes # 2.4 10*3/uL (1.4-4.0); Monocytes # 0.6 10*3/uL (0.11-0.8)
[2017-01-25 05:24] LABS: Calcium 8.8 MG/DL (8.5-10.1); Osmolality,Calculated 286.1 MOS/KG (273-304); Potassium 3.7 MMOL/L (3.5-5.1)
[2017-01-25 05:28] LABS: Calcium 9.1 MG/DL (8.5-10.1); Magnesium 2.1 MG/DL (1.8-2.4); Osmolality,Calculated 290.8 MOS/KG (273-304); Potassium 3.7 MMOL/L (3.5-5.1)
[2017-01-25] MEDS ORDERED: DIAZEPAM 5 MG TABLET ONE (08:03)
[2017-01-25] MEDS: INSULIN LISPRO 100 UNIT/ML SUBCUT SCH ×4 (08:10→20:50)
[2017-01-25] MEDS ORDERED: HEPARIN/NACL 0.9% 2 UNITS/ML 1,000 ML IV ONE (08:33)
[2017-01-25] MEDS ORDERED: LIDOCAINE 1%/EPI INJ 20 ML VIAL ONE (08:33)
[2017-01-25] MEDS ORDERED: diphenhydrAMINE CAP 25 MG CAPSULE PO ONE (08:45)
[2017-01-25] MEDS: LOSARTAN 25 MG TABLET PO SCH (09:00)
[2017-01-25] MEDS: PANTOPRAZOLE 40 MG TABLET PO SCH (09:00)
[2017-01-25] MEDS: METOPROLOL TARTRATE 25 MG TABLET PO SCH ×2 (09:00→20:49)
[2017-01-25] MEDS: TICAGRELOR 90 MG TABLET PO SCH ×2 (09:00→20:49)
[2017-01-25] MEDS: ISOSORBIDE MONONITRATE 30 MG TABLET PO SCH (09:00)
[2017-01-25] MEDS: ASPIRIN EC 81 MG TABLET PO SCH (09:00)
[2017-01-25] MEDS ORDERED: MIDAZOLAM 2 MG/2 ML VIAL ONE ×2 (09:14→09:33)
[2017-01-25] MEDS ORDERED: fentaNYL 100 MCG/2 ML VIAL ONE (09:14)
[2017-01-25] MEDS: GLIMEPIRIDE 4 MG TABLET PO SCH ×2 (09:18→20:49)
[2017-01-25] MEDS ORDERED: ENOXAPARIN 60 MG/0.6 ML SYRINGE ONE (09:41)
[2017-01-25] MEDS ORDERED: NITROGLYCERIN DRIP 50 MG/250 ML BOTTLE IV ONE (09:54)
[2017-01-25] MEDS ORDERED: DEXTROSE 5% NACL 0.45% 1,000 ML IV SCH (10:30)
[2017-01-25] MEDS: FUROSEMIDE 40 MG/4 ML VIAL IV SCH ×2 (10:58→16:40)
[2017-01-25] MEDS: ENOXAPARIN 40 MG/0.4 ML SYRINGE SUBCUT SCH (15:45)
[2017-01-25] MEDS: ROSUVASTATIN 20 MG TABLET PO SCH (20:49)
[2017-01-25] MEDS: MELATONIN 3 MG TABLET PO PRN (20:49)
[2017-01-26 03:48] LABS: Basophils % 0.4 % (0.0-0.8); Eosinophils # 0.2 10*3/uL (0.0-0.87); Eosinophils % 2.2 % (0.00-10.9); Hematocrit 43.2 VOL% (35.7-47.0); Hemoglobin 14.5 GM/DL (12.0-16.0); Immature Granulocytes % 0.2 %; Immature Granulocytes Absolute 0.02 #; Lymphocytes # 1.8 10*3/uL (1.4-4.0); Lymphocytes % 21.7 % (21.3-54.2); Mean Corpuscular HGB Conc 33.6 GM/DL (32-36); Mean Corpuscular Hemoglobin 28 PG (27-34); Mean Platelet Volume 10.5 FL (9.6-12.0); Monocytes # 0.8 10*3/uL (0.11-0.8); Monocytes % 9.6 % (1.7-12.7); Neutrophils # 5.5 10*3/uL (1.4-7.4); Neutrophils % 65.9 % (38.7-73.9); Platelet Count 201 T/CUMM (130-400); Red Blood Count 5.14 MC/CUMM (3.8-5.5); Red Cell Distribution Width 13.3 % (9.3-17.3); White Blood Count 8.3 T/CUMM (4-12)
[2017-01-26 04:09] LABS: Calcium 8.8 MG/DL (8.5-10.1); Magnesium 2.2 MG/DL (1.8-2.4); Osmolality,Calculated 283.1 MOS/KG (273-304); Potassium 3.9 MMOL/L (3.5-5.1)
[2017-01-26] MEDS: INSULIN LISPRO 100 UNIT/ML SUBCUT SCH ×2 (08:19→12:42)
[2017-01-26] MEDS: FUROSEMIDE 40 MG/4 ML VIAL IV SCH (09:12)
[2017-01-26] MEDS: ISOSORBIDE MONONITRATE 30 MG TABLET PO SCH (09:53)
[2017-01-26] MEDS: ASPIRIN EC 81 MG TABLET PO SCH (09:53)
[2017-01-26] MEDS: GLIMEPIRIDE 4 MG TABLET PO SCH (09:53)
[2017-01-26] MEDS: METOPROLOL TARTRATE 25 MG TABLET PO SCH (09:54)
[2017-01-26] MEDS: PANTOPRAZOLE 40 MG TABLET PO SCH (09:58)
[2017-01-26] MEDS: TICAGRELOR 90 MG TABLET PO SCH (09:58)
[2017-01-26] MEDS: LOSARTAN 25 MG TABLET PO SCH (09:58)
[2017-01-26 11:36] VITALS: BP 117/78
[2017-01-26] MEDS: ENOXAPARIN 40 MG/0.4 ML SYRINGE SUBCUT SCH (15:32)
== END 2017-01-26 15:49 | disposition home or self-care (01) | DRG 247 ==
LOC: EDBD → EDUNIT# → N.EDINP 06:52 → N.ED 06:52 → OBSVTOIN 09:04 → SUATTDRO 09:04 → N.EDINP 10:26 → N.4E 11:00 → N.TELEN 01-24 12:51
PROVIDERS: ADMIT Internal Medicine; ATTEND Internal Medicine
PROC: CLCCHCL (ICD-10-PCS; 2017-01-25 10:45)

== ENCOUNTER 2019-12-16 14:44 | Inpatient (IN) ==
[2019-12-16 17:30] LABS: Bilirubin,Urine Negative (Negative); Blood, Urine Moderate mg/dL (Negative); Glucose,Urine (UA) >=500 mg/dL (Negative); Ketones,Urine 80 mg/dL (Negative); Mucus,Urine Occasional /LPF (Occasional); Nitrite,Urine Negative (Negative); Protein,Urine 100 MG/DL; RBC,Urine 69 /HPF (0-4); Squamous Epithelial Cell,Urine Occasional /HPF (0-10); Urine Appearance CLOUDY (Clear); Urine Color Yellow (Yellow); Urine Specific Gravity 1.044 (1.001-1.035); WBC,Urine 17 /HPF (0-6)
[2019-12-16 17:34] LABS: Basophils # 0.1 10*3/uL (0.0-0.2); Basophils % 0.4 % (0.0-0.8); Eosinophils % 0.1 % (0.00-10.9); Hemoglobin 13.6 GM/DL (12.0-16.0); Immature Granulocytes % 1.8 %; Immature Granulocytes Absolute 0.27 #; Lymphocytes # 1.8 10*3/uL (1.4-4.0); Mean Corpuscular HGB Conc 33.2 GM/DL (32-36); Mean Corpuscular Volume 83.3 FL (87-102); Mean Platelet Volume 11.7 FL (9.6-12.0); Monocytes % 10.6 % (1.7-12.7); Neutrophils % 75.1 % (38.7-73.9); Platelet Count 240 T/CUMM (130-400); Red Blood Count 4.92 MC/CUMM (3.8-5.5); Red Cell Distribution Width 12.9 % (9.3-17.3); White Blood Count 15.2 T/CUMM (4-12)
[2019-12-16 17:42] LABS: Albumin 2.2 G/DL (3.4-5.0); Bilirubin,Total 0.7 MG/DL (0.2-1.0); Calcium 9.8 MG/DL (8.5-10.1); Osmolality,Calculated 280.4 MOS/KG (273-304); Total Protein 7.8 G/DL (6.4-8.3)
[2019-12-16] MEDS ORDERED: PROMETHAZINE INJ 12.5 MG in SODIUM CHLORIDE 0.9% 50 ML IV STA (17:55)
[2019-12-16] MEDS ORDERED: MORPHINE 4 MG/1 ML VIAL IV STA (17:55)
[2019-12-16] MEDS ORDERED: PROMETHAZINE 25 MG/1 ML VIAL ONE (18:06)
[2019-12-16] MEDS ORDERED: DEXTROSE 50% 25 GM/50 ML VIAL IV PRN ×2 (18:14)
[2019-12-16] MEDS ORDERED: GLUCAGON 1 MG VIAL IM PRN ×2 (18:14)
[2019-12-16] MEDS ORDERED: VANCOMYCIN 1,000 MG VIAL ONE (18:52)
[2019-12-16 19:03] LABS: Lymphocytes 10 % (20-55); Segmented Neutrophils 77 % (50-85); Total Cells Counted 100
[2019-12-16] MEDS ORDERED: VANCOMYCIN INJ 1,000 MG in SODIUM CHLORIDE 0.9% 250 ML IV STA (19:05)
[2019-12-16] MEDS: ROSUVASTATIN 20 MG TABLET PO SCH (21:26)
[2019-12-16] MEDS: METOPROLOL TARTRATE 25 MG TABLET PO SCH (21:26)
[2019-12-16] MEDS: KETOROLAC 15 MG/1 ML VIAL IV PRN (21:27)
[2019-12-16] MEDS: ENOXAPARIN 40 MG/0.4 ML SYRINGE SUBCUT SCH (21:27)
[2019-12-16] MEDS: MEROPENEM 500 MG in SODIUM CHLORIDE 0.9% 100 ML IV SCH (21:31)
[2019-12-16] MEDS: INSULIN LISPRO 100 UNIT/ML SUBCUT SCH (22:25)
[2019-12-17] MEDS: KETOROLAC 15 MG/1 ML VIAL IV PRN ×4 (03:10→21:24)
[2019-12-17] MEDS: MEROPENEM 500 MG in SODIUM CHLORIDE 0.9% 100 ML IV SCH ×3 (03:12→22:54)
[2019-12-17 06:26] LABS: Basophils # 0.1 10*3/uL (0.0-0.2); Basophils % 0.4 % (0.0-0.8); Eosinophils % 0.3 % (0.00-10.9); Hematocrit 38.8 VOL% (35.7-47.0); Hemoglobin 12.8 GM/DL (12.0-16.0); Immature Granulocytes % 1.9 %; Immature Granulocytes Absolute 0.27 #; Lymphocytes # 1.9 10*3/uL (1.4-4.0); Lymphocytes % 13.4 % (21.3-54.2); Mean Corpuscular Volume 84.3 FL (87-102); Mean Platelet Volume 11.5 FL (9.6-12.0); Monocytes % 11.4 % (1.7-12.7); Neutrophils % 72.6 % (38.7-73.9); Platelet Count 260 T/CUMM (130-400); White Blood Count 14.1 T/CUMM (4-12)
[2019-12-17] MEDS: VANCOMYCIN INJ 1,750 MG in SODIUM CHLORIDE 0.9% 500 ML IV SCH ×2 (06:32→20:33)
[2019-12-17 06:44] LABS: Calcium 9.2 MG/DL (8.5-10.1); Osmolality,Calculated 276.2 MOS/KG (273-304)
[2019-12-17 06:49] LABS: Band Neutrophils 4 % (0-10); Lymphocytes 12 % (20-55); Microcytosis Slight; Platelet Estimate Normal; Segmented Neutrophils 74 % (50-85); Total Cells Counted 100
[2019-12-17] MEDS: INSULIN LISPRO 100 UNIT/ML SUBCUT SCH ×4 (08:28→21:29)
[2019-12-17] MEDS: METOPROLOL TARTRATE 25 MG TABLET PO SCH ×2 (12:35→21:23)
[2019-12-17] MEDS: ASPIRIN EC 81 MG TABLET PO SCH (12:35)
[2019-12-17] MEDS: PANTOPRAZOLE 40 MG TABLET PO SCH (12:36)
[2019-12-17] MEDS: CLOPIDOGREL 75 MG TABLET PO SCH (12:36)
[2019-12-17] MEDS ORDERED: diphenhydrAMINE 50 MG/1 ML VIAL ONE (13:23)
[2019-12-17] MEDS ORDERED: propofoL 200 MG/20 ML VIAL IV ONE (13:24)
[2019-12-17] MEDS ORDERED: LIDOCAINE 2% 5 ML VIAL ONE (13:25)
[2019-12-17] MEDS ORDERED: MIDAZOLAM 2 MG/2 ML VIAL ONE (13:25)
[2019-12-17] MEDS ORDERED: SEVOFLURANE 1 UNIT/15 MINUTE INH ONE (13:25)
[2019-12-17] MEDS ORDERED: ETOMIDATE 40 MG/20 ML VIAL IV ONE (13:25)
[2019-12-17] MEDS ORDERED: fentaNYL 100 MCG/2 ML VIAL ONE (13:25)
[2019-12-17] MEDS ORDERED: ACETAMINOPHEN 1,000 MG/100 ML VIAL IV ONE (13:25)
[2019-12-17] MEDS ORDERED: ONDANSETRON 4 MG/2 ML VIAL ONE (13:25)
[2019-12-17] MEDS ORDERED: diphenhydrAMINE 50 MG/1 ML VIAL IV ONE (13:32)
[2019-12-17] MEDS: FLUCONAZOLE 100 MG TABLET PO SCH (16:04)
[2019-12-17] MEDS: NYSTATIN POWDER 15 GM BOTTLE TOP SCH ×2 (16:04→21:29)
[2019-12-17] MEDS: ROSUVASTATIN 20 MG TABLET PO SCH (21:23)
[2019-12-17] MEDS: ENOXAPARIN 40 MG/0.4 ML SYRINGE SUBCUT SCH (21:25)
[2019-12-17] MEDS: INSULIN GLARGINE 100 UNIT/ML SUBCUT SCH (21:29)
[2019-12-18] MEDS: MEROPENEM 500 MG in SODIUM CHLORIDE 0.9% 100 ML IV SCH ×5 (04:00→21:42)
[2019-12-18] MEDS: VANCOMYCIN INJ 1,750 MG in SODIUM CHLORIDE 0.9% 500 ML IV SCH ×2 (06:28→19:07)
[2019-12-18 07:35] LABS: Basophils # 0.1 10*3/uL (0.0-0.2); Basophils % 0.5 % (0.0-0.8); Eosinophils # 0.1 10*3/uL (0.0-0.87); Eosinophils % 0.8 % (0.00-10.9); Hematocrit 39.3 VOL% (35.7-47.0); Hemoglobin 12.6 GM/DL (12.0-16.0); Immature Granulocytes % 2.1 %; Immature Granulocytes Absolute 0.25 #; Lymphocytes # 2.1 10*3/uL (1.4-4.0); Lymphocytes % 17.5 % (21.3-54.2); Mean Corpuscular HGB Conc 32.1 GM/DL (32-36); Mean Corpuscular Volume 86.4 FL (87-102); Monocytes % 9.5 % (1.7-12.7); Neutrophils % 69.6 % (38.7-73.9); Platelet Count 292 T/CUMM (130-400); Red Blood Count 4.55 MC/CUMM (3.8-5.5); Red Cell Distribution Width 13.1 % (9.3-17.3)
[2019-12-18 07:50] LABS: Calcium 9.1 MG/DL (8.5-10.1); Osmolality,Calculated 282.5 MOS/KG (273-304)
[2019-12-18 07:56] LABS: Band Neutrophils 11 % (0-10); Eosinophils 2 % (0-10); Lymphocytes 24 % (20-55); Metamyelocytes 1 %; Segmented Neutrophils 56 % (50-85); Total Cells Counted 100
[2019-12-18 07:57] LABS: Anisocytosis 1+; Platelet Estimate Normal
[2019-12-18] MEDS: INSULIN LISPRO 100 UNIT/ML SUBCUT SCH ×4 (08:28→20:41)
[2019-12-18] MEDS: ASPIRIN EC 81 MG TABLET PO SCH (08:29)
[2019-12-18] MEDS: CLOPIDOGREL 75 MG TABLET PO SCH (08:29)
[2019-12-18] MEDS: FLUCONAZOLE 100 MG TABLET PO SCH (08:29)
[2019-12-18] MEDS: METOPROLOL TARTRATE 25 MG TABLET PO SCH ×2 (08:29→20:42)
[2019-12-18] MEDS: PANTOPRAZOLE 40 MG TABLET PO SCH (08:30)
[2019-12-18] MEDS: NYSTATIN POWDER 15 GM BOTTLE TOP SCH ×2 (11:47→14:23)
[2019-12-18] MEDS ORDERED: HYDROmorphone 2 MG/1 ML VIAL IV PRN (12:56)
[2019-12-18] MEDS: HYDROmorphone 2 MG/1 ML VIAL IV PRN ×2 (14:43→20:34)
[2019-12-18] MEDS: INSULIN GLARGINE 100 UNIT/ML SUBCUT SCH (20:41)
[2019-12-18] MEDS: ROSUVASTATIN 20 MG TABLET PO SCH (20:42)
[2019-12-18] MEDS: ENOXAPARIN 40 MG/0.4 ML SYRINGE SUBCUT SCH (20:42)
[2019-12-19] MEDS: MEROPENEM 500 MG in SODIUM CHLORIDE 0.9% 100 ML IV SCH ×5 (03:42→22:04)
[2019-12-19] MEDS: HYDROmorphone 2 MG/1 ML VIAL IV PRN ×4 (03:43→16:20)
[2019-12-19] MEDS: VANCOMYCIN INJ 1,750 MG in SODIUM CHLORIDE 0.9% 500 ML IV SCH ×2 (05:54→17:41)
[2019-12-19 07:52] LABS: Basophils # 0.1 10*3/uL (0.0-0.2); Basophils % 0.4 % (0.0-0.8); Eosinophils # 0.1 10*3/uL (0.0-0.87); Eosinophils % 0.8 % (0.00-10.9); Hematocrit 37.7 VOL% (35.7-47.0); Hemoglobin 12.2 GM/DL (12.0-16.0); Immature Granulocytes % 1.9 %; Immature Granulocytes Absolute 0.23 #; Lymphocytes # 2.5 10*3/uL (1.4-4.0); Lymphocytes % 20.6 % (21.3-54.2); Mean Corpuscular HGB Conc 32.4 GM/DL (32-36); Mean Corpuscular Volume 85.3 FL (87-102); Mean Platelet Volume 10.7 FL (9.6-12.0); Neutrophils % 68.3 % (38.7-73.9); Platelet Count 305 T/CUMM (130-400); Red Blood Count 4.42 MC/CUMM (3.8-5.5); Red Cell Distribution Width 13.1 % (9.3-17.3); White Blood Count 12.3 T/CUMM (4-12)
[2019-12-19 08:11] LABS: Calcium 8.8 MG/DL (8.5-10.1); Osmolality,Calculated 285.3 MOS/KG (273-304)
[2019-12-19] MEDS: INSULIN LISPRO 100 UNIT/ML SUBCUT SCH ×4 (09:04→21:04)
[2019-12-19] MEDS: FLUCONAZOLE 100 MG TABLET PO SCH (09:09)
[2019-12-19] MEDS: PANTOPRAZOLE 40 MG TABLET PO SCH (09:09)
[2019-12-19] MEDS: METOPROLOL TARTRATE 25 MG TABLET PO SCH ×2 (09:09→21:06)
[2019-12-19] MEDS: ASPIRIN EC 81 MG TABLET PO SCH (09:09)
[2019-12-19] MEDS: CLOPIDOGREL 75 MG TABLET PO SCH (09:09)
[2019-12-19] MEDS: ENOXAPARIN 40 MG/0.4 ML SYRINGE SUBCUT SCH (21:05)
[2019-12-19] MEDS: INSULIN GLARGINE 100 UNIT/ML SUBCUT SCH (21:05)
[2019-12-19] MEDS: ROSUVASTATIN 20 MG TABLET PO SCH (21:06)
[2019-12-20] MEDS: HYDROmorphone 2 MG/1 ML VIAL IV PRN (00:12)
[2019-12-20] MEDS: MEROPENEM 500 MG in SODIUM CHLORIDE 0.9% 100 ML IV SCH (03:41)
[2019-12-20] MEDS: VANCOMYCIN INJ 1,750 MG in SODIUM CHLORIDE 0.9% 500 ML IV SCH (05:56)
[2019-12-20 07:00] LABS: Basophils # 0.1 10*3/uL (0.0-0.2); Basophils % 0.5 % (0.0-0.8); Eosinophils # 0.2 10*3/uL (0.0-0.87); Eosinophils % 1.5 % (0.00-10.9); Hemoglobin 12.4 GM/DL (12.0-16.0); Immature Granulocytes % 1.7 %; Immature Granulocytes Absolute 0.17 #; Lymphocytes # 1.9 10*3/uL (1.4-4.0); Lymphocytes % 18.9 % (21.3-54.2); Mean Corpuscular HGB Conc 32.6 GM/DL (32-36); Mean Corpuscular Volume 85.6 FL (87-102); Mean Platelet Volume 11.1 FL (9.6-12.0); Monocytes % 7.1 % (1.7-12.7); Neutrophils % 70.3 % (38.7-73.9); Platelet Count 300 T/CUMM (130-400); Red Blood Count 4.44 MC/CUMM (3.8-5.5); Red Cell Distribution Width 12.9 % (9.3-17.3); White Blood Count 10.1 T/CUMM (4-12)
[2019-12-20 07:24] LABS: Osmolality,Calculated 285.4 MOS/KG (273-304)
[2019-12-20] MEDS: INSULIN LISPRO 100 UNIT/ML SUBCUT SCH ×4 (08:30→22:36)
[2019-12-20] MEDS: METOPROLOL TARTRATE 25 MG TABLET PO SCH ×2 (08:31→22:38)
[2019-12-20] MEDS: CLOPIDOGREL 75 MG TABLET PO SCH (08:31)
[2019-12-20] MEDS: FLUCONAZOLE 100 MG TABLET PO SCH (08:31)
[2019-12-20] MEDS: ASPIRIN EC 81 MG TABLET PO SCH (08:31)
[2019-12-20] MEDS: PANTOPRAZOLE 40 MG TABLET PO SCH (08:31)
[2019-12-20] MEDS ORDERED: NITROGLYCERIN SL 0.4 MG TABLET SL PRN (08:58)
[2019-12-20] MEDS: ISOSORBIDE MONONITRATE 30 MG TABLET PO SCH (09:42)
[2019-12-20] MEDS: LORazepam 1 MG TABLET PO PRN (09:42)
[2019-12-20] MEDS: METOCLOPRAMIDE 5 MG TABLET PO SCH (09:42)
[2019-12-20] MEDS: FUROSEMIDE 40 MG TABLET PO SCH (09:42)
[2019-12-20] MEDS: LOSARTAN 25 MG TABLET PO SCH (09:43)
[2019-12-20] MEDS: POTASSIUM CHLORIDE 20 MEQ PACK PO SCH (09:46)
[2019-12-20] MEDS: MONTELUKAST 10 MG TABLET PO SCH (09:46)
[2019-12-20] MEDS: ceFAZolin 2,000 MG in PREMIX 1 EACH IV SCH ×2 (10:35→17:47)
[2019-12-20] MEDS: metFORMIN 500 MG TABLET PO SCH (17:11)
[2019-12-20] MEDS: GLIMEPIRIDE 4 MG TABLET PO SCH (17:11)
[2019-12-20] MEDS: INSULIN GLARGINE 100 UNIT/ML SUBCUT SCH (22:37)
[2019-12-20] MEDS: ENOXAPARIN 40 MG/0.4 ML SYRINGE SUBCUT SCH (22:37)
[2019-12-20] MEDS: ROSUVASTATIN 20 MG TABLET PO SCH (22:38)
[2019-12-21] MEDS: ceFAZolin 2,000 MG in PREMIX 1 EACH IV SCH ×3 (01:34→18:17)
[2019-12-21 05:50] LABS: Basophils % 0.4 % (0.0-0.8); Eosinophils # 0.2 10*3/uL (0.0-0.87); Eosinophils % 1.8 % (0.00-10.9); Hematocrit 36.3 VOL% (35.7-47.0); Hemoglobin 11.8 GM/DL (12.0-16.0); Immature Granulocytes % 1.1 %; Immature Granulocytes Absolute 0.12 #; Lymphocytes # 2.9 10*3/uL (1.4-4.0); Lymphocytes % 26.4 % (21.3-54.2); Mean Corpuscular HGB Conc 32.5 GM/DL (32-36); Mean Corpuscular Volume 84.8 FL (87-102); Mean Platelet Volume 10.7 FL (9.6-12.0); Monocytes % 7.7 % (1.7-12.7); Neutrophils % 62.6 % (38.7-73.9); Platelet Count 340 T/CUMM (130-400); Red Blood Count 4.28 MC/CUMM (3.8-5.5); Red Cell Distribution Width 12.9 % (9.3-17.3); White Blood Count 10.9 T/CUMM (4-12)
[2019-12-21 06:18] LABS: Band Neutrophils 14 % (0-10); Eosinophils 2 % (0-10); Lymphocytes 30 % (20-55); Platelet Estimate Normal; Segmented Neutrophils 47 % (50-85); Total Cells Counted 100
[2019-12-21 06:19] LABS: Anisocytosis 1+; Burr Cells Few; Smudge Cells Few
[2019-12-21] MEDS: INSULIN LISPRO 100 UNIT/ML SUBCUT SCH ×4 (07:44→20:27)
[2019-12-21] MEDS: GLIMEPIRIDE 4 MG TABLET PO SCH ×2 (07:56→16:36)
[2019-12-21] MEDS: metFORMIN 500 MG TABLET PO SCH ×2 (07:57→16:36)
[2019-12-21] MEDS: METOCLOPRAMIDE 5 MG TABLET PO SCH (09:00)
[2019-12-21] MEDS: METOPROLOL TARTRATE 25 MG TABLET PO SCH ×2 (09:01→20:27)
[2019-12-21] MEDS: ISOSORBIDE MONONITRATE 30 MG TABLET PO SCH (09:01)
[2019-12-21] MEDS: FUROSEMIDE 40 MG TABLET PO SCH (09:01)
[2019-12-21] MEDS: MONTELUKAST 10 MG TABLET PO SCH (09:01)
[2019-12-21] MEDS: PANTOPRAZOLE 40 MG TABLET PO SCH (09:02)
[2019-12-21] MEDS: LOSARTAN 25 MG TABLET PO SCH (09:02)
[2019-12-21] MEDS: ASPIRIN EC 81 MG TABLET PO SCH (09:21)
[2019-12-21] MEDS: CLOPIDOGREL 75 MG TABLET PO SCH (09:22)
[2019-12-21] MEDS: POTASSIUM CHLORIDE 20 MEQ PACK PO SCH (09:22)
[2019-12-21] MEDS ORDERED: LIDOCAINE 1%/EPI INJ 20 ML VIAL ONE (12:47)
[2019-12-21] MEDS ORDERED: BUPIVACAINE MPF 0.25% 30 ML VIAL ONE (12:47)
[2019-12-21] MEDS ORDERED: SEVOFLURANE 1 UNIT/15 MINUTE INH ONE (13:23)
[2019-12-21] MEDS ORDERED: LIDOCAINE 2% 5 ML VIAL ONE (13:23)
[2019-12-21] MEDS ORDERED: propofoL 200 MG/20 ML VIAL IV ONE (13:23)
[2019-12-21] MEDS ORDERED: fentaNYL 100 MCG/2 ML VIAL ONE (13:23)
[2019-12-21] MEDS ORDERED: MIDAZOLAM 2 MG/2 ML VIAL ONE (13:24)
[2019-12-21] MEDS: ENOXAPARIN 40 MG/0.4 ML SYRINGE SUBCUT SCH (20:27)
[2019-12-21] MEDS: ROSUVASTATIN 20 MG TABLET PO SCH (20:27)
[2019-12-21] MEDS: INSULIN GLARGINE 100 UNIT/ML SUBCUT SCH (20:27)
[2019-12-22] MEDS: ceFAZolin 2,000 MG in PREMIX 1 EACH IV SCH ×3 (03:27→18:25)
[2019-12-22] MEDS: INSULIN LISPRO 100 UNIT/ML SUBCUT SCH ×4 (07:58→21:15)
[2019-12-22 08:16] LABS: Basophils % 0.2 % (0.0-0.8); Eosinophils # 0.2 10*3/uL (0.0-0.87); Eosinophils % 1.9 % (0.00-10.9); Hemoglobin 12.6 GM/DL (12.0-16.0); Immature Granulocytes Absolute 0.09 #; Lymphocytes # 2.4 10*3/uL (1.4-4.0); Lymphocytes % 27.2 % (21.3-54.2); Mean Corpuscular HGB Conc 31.5 GM/DL (32-36); Mean Corpuscular Volume 86.6 FL (87-102); Mean Platelet Volume 10.2 FL (9.6-12.0); Monocytes % 7.8 % (1.7-12.7); Neutrophils % 61.9 % (38.7-73.9); Platelet Count 351 T/CUMM (130-400); Red Blood Count 4.62 MC/CUMM (3.8-5.5); Red Cell Distribution Width 13.1 % (9.3-17.3); White Blood Count 8.8 T/CUMM (4-12)
[2019-12-22] MEDS: GLIMEPIRIDE 4 MG TABLET PO SCH ×2 (08:41→17:02)
[2019-12-22] MEDS: HYDROmorphone 2 MG/1 ML VIAL IV PRN (08:55)
[2019-12-22 09:26] LABS: Calcium 9.2 MG/DL (8.5-10.1); Osmolality,Calculated 283.8 MOS/KG (273-304)
[2019-12-22] MEDS: CLOPIDOGREL 75 MG TABLET PO SCH (09:51)
[2019-12-22] MEDS: POTASSIUM CHLORIDE 20 MEQ PACK PO SCH (09:51)
[2019-12-22] MEDS: metFORMIN 500 MG TABLET PO SCH ×2 (09:51→17:02)
[2019-12-22] MEDS: LOSARTAN 25 MG TABLET PO SCH (09:52)
[2019-12-22] MEDS: ISOSORBIDE MONONITRATE 30 MG TABLET PO SCH (09:52)
[2019-12-22] MEDS: METOPROLOL TARTRATE 25 MG TABLET PO SCH ×2 (09:52→21:19)
[2019-12-22] MEDS: LORazepam 1 MG TABLET PO PRN (09:52)
[2019-12-22] MEDS: METOCLOPRAMIDE 5 MG TABLET PO SCH (09:52)
[2019-12-22] MEDS: MONTELUKAST 10 MG TABLET PO SCH (09:52)
[2019-12-22] MEDS: FUROSEMIDE 40 MG TABLET PO SCH (09:52)
[2019-12-22] MEDS: ASPIRIN EC 81 MG TABLET PO SCH (09:52)
[2019-12-22] MEDS: PANTOPRAZOLE 40 MG TABLET PO SCH (09:52)
[2019-12-22] MEDS: SODIUM HYPOCHLORITE 0.25% IRRIG 473 ML BOTTLE TOP SCH (11:19)
[2019-12-22] MEDS ORDERED: POTASSIUM CHLORIDE 20 MEQ PACK PO ONE (15:57)
[2019-12-22] MEDS: INSULIN GLARGINE 100 UNIT/ML SUBCUT SCH (21:18)
[2019-12-22] MEDS: ENOXAPARIN 40 MG/0.4 ML SYRINGE SUBCUT SCH (21:19)
[2019-12-22] MEDS: ROSUVASTATIN 20 MG TABLET PO SCH (21:21)
[2019-12-23] MEDS: ceFAZolin 2,000 MG in PREMIX 1 EACH IV SCH ×2 (02:33→09:35)
[2019-12-23 05:51] LABS: Basophils % 0.3 % (0.0-0.8); Eosinophils # 0.2 10*3/uL (0.0-0.87); Eosinophils % 2.1 % (0.00-10.9); Hematocrit 40.3 VOL% (35.7-47.0); Hemoglobin 12.7 GM/DL (12.0-16.0); Immature Granulocytes % 0.8 %; Immature Granulocytes Absolute 0.07 #; Lymphocytes # 2.8 10*3/uL (1.4-4.0); Lymphocytes % 30.8 % (21.3-54.2); Mean Corpuscular HGB Conc 31.5 GM/DL (32-36); Mean Platelet Volume 10.3 FL (9.6-12.0); Monocytes % 7.8 % (1.7-12.7); Neutrophils % 58.2 % (38.7-73.9); Platelet Count 333 T/CUMM (130-400); Red Blood Count 4.58 MC/CUMM (3.8-5.5); Red Cell Distribution Width 13.1 % (9.3-17.3)
[2019-12-23 06:15] LABS: Osmolality,Calculated 284.1 MOS/KG (273-304)
[2019-12-23 09:11] VITALS: BP 125/72
[2019-12-23] MEDS: METOPROLOL TARTRATE 25 MG TABLET PO SCH (09:34)
[2019-12-23] MEDS: MONTELUKAST 10 MG TABLET PO SCH (09:34)
[2019-12-23] MEDS: CLOPIDOGREL 75 MG TABLET PO SCH (09:34)
[2019-12-23] MEDS: ISOSORBIDE MONONITRATE 30 MG TABLET PO SCH (09:34)
[2019-12-23] MEDS: FUROSEMIDE 40 MG TABLET PO SCH (09:35)
[2019-12-23] MEDS: ASPIRIN EC 81 MG TABLET PO SCH (09:35)
[2019-12-23] MEDS: GLIMEPIRIDE 4 MG TABLET PO SCH (09:35)
[2019-12-23] MEDS: metFORMIN 500 MG TABLET PO SCH (09:35)
[2019-12-23] MEDS: PANTOPRAZOLE 40 MG TABLET PO SCH (09:35)
[2019-12-23] MEDS: LOSARTAN 25 MG TABLET PO SCH (09:35)
[2019-12-23] MEDS: INSULIN LISPRO 100 UNIT/ML SUBCUT SCH (09:36)
[2019-12-23] MEDS: METOCLOPRAMIDE 5 MG TABLET PO SCH (09:36)
[2019-12-23] MEDS: POTASSIUM CHLORIDE 20 MEQ PACK PO SCH (09:36)
[2019-12-23] MEDS: SODIUM HYPOCHLORITE 0.25% IRRIG 473 ML BOTTLE TOP SCH (11:45)
== END 2019-12-23 13:30 | disposition home health service (06) | DRG 749 ==
LOC: N.ED 14:44 → SUATTDRO 18:14 → N.EDINP 18:14 → N.3E 20:16
PROVIDERS: ADMIT Emergency Medicine; ATTEND Internal Medicine

== ENCOUNTER 2021-07-23 09:45 | Observation (INO) ==
[2021-07-23] MEDS ORDERED: LACTATED RINGERS 1,000 ML IV SCH (10:30)
[2021-07-23] MEDS ORDERED: CLINDAMYCIN INJ 900 MG/50 ML PREMIX IV ONE (10:35)
[2021-07-23] MEDS ORDERED: MIDAZOLAM 2 MG/2 ML VIAL ONE (10:51)
[2021-07-23] MEDS ORDERED: fentaNYL 100 MCG/2 ML VIAL ONE (10:52)
[2021-07-23] MEDS ORDERED: ONDANSETRON 4 MG/2 ML VIAL ONE (11:17)
[2021-07-23] MEDS ORDERED: DEXAMETHASONE 4 MG/1 ML VIAL ONE (11:17)
[2021-07-23] MEDS ORDERED: propofoL 200 MG/20 ML VIAL IV ONE (11:17)
[2021-07-23] MEDS ORDERED: LIDOCAINE 2% 5 ML VIAL ONE (11:17)
[2021-07-23] MEDS ORDERED: SEVOFLURANE 1 UNIT/15 MINUTE INH ONE (11:18)
[2021-07-23] MEDS ORDERED: PHENYLEPHRINE 1 MG/10 ML SYRINGE IV ONE (11:50)
[2021-07-23] MEDS ORDERED: ALBUTEROL/IPRATROPIUM 3 ML NEB RESP TX ONE ×2 (12:09→12:15)
[2021-07-23] MEDS ORDERED: ACETAMINOPHEN 325 MG TABLET PO PRN (12:20)
[2021-07-23] MEDS ORDERED: DEXTROSE 10% 250 ML BAG IV PRN (12:20)
[2021-07-23] MEDS ORDERED: HYDROmorphone 1 MG/1 ML SYRINGE IV PRN ×2 (12:20)
[2021-07-23] MEDS ORDERED: GLUCAGON 1 MG VIAL IM PRN (12:20)
[2021-07-23] MEDS ORDERED: ALBUTEROL/IPRATROPIUM 3 ML NEB RESP TX PRN (12:20)
[2021-07-23] MEDS ORDERED: BISACODYL 5 MG TABLET PO PRN (12:20)
[2021-07-23] MEDS ORDERED: KETOROLAC 15 MG/1 ML VIAL IV PRN (12:20)
[2021-07-23] MEDS ORDERED: ONDANSETRON 4 MG/2 ML VIAL IV PRN (12:20)
[2021-07-23] MEDS ORDERED: NITROGLYCERIN SL 0.4 MG TABLET SL PRN (12:24)
[2021-07-23] MEDS ORDERED: LEVOFLOXACIN INJ 750 MG/150 ML PREMIX IV SCH (14:30)
[2021-07-23] MEDS: metroNIDAZOLE INJ 500 MG/100 ML PREMIX IV SCH ×2 (16:09→22:15)
[2021-07-23] MEDS: INSULIN LISPRO 100 UNIT/ML SUBCUT SCH (17:19)
[2021-07-23] MEDS: METOPROLOL TARTRATE 50 MG TABLET PO SCH (20:42)
[2021-07-24 06:13] LABS: Basophils % 0.2 % (0.0-0.8); Eosinophils % 0.1 % (0.00-10.9); Hematocrit 39.3 VOL% (35.7-47.0); Hemoglobin 12.7 GM/DL (12.0-16.0); Immature Granulocytes % 0.8 %; Immature Granulocytes Absolute 0.09 #; Lymphocytes # 1.4 10*3/uL (1.4-4.0); Mean Corpuscular HGB Conc 32.3 GM/DL (32-36); Mean Corpuscular Volume 86.2 FL (87-102); Neutrophils % 78.9 % (38.7-73.9); Platelet Count 187 T/CUMM (130-400); Red Blood Count 4.56 MC/CUMM (3.8-5.5); Red Cell Distribution Width 13.9 % (9.3-17.3); White Blood Count 11.9 T/CUMM (4-12)
[2021-07-24] MEDS: metroNIDAZOLE INJ 500 MG/100 ML PREMIX IV SCH (06:16)
[2021-07-24] MEDS ORDERED: ENOXAPARIN 40 MG/0.4 ML SYRINGE SUBCUT SCH (06:30)
[2021-07-24] MEDS ORDERED: LOSARTAN 25 MG TABLET PO SCH (09:00)
[2021-07-24] MEDS ORDERED: PANTOPRAZOLE 40 MG TABLET PO SCH (09:00)
[2021-07-24] MEDS ORDERED: ASPIRIN EC 81 MG TABLET PO SCH (09:00)
[2021-07-24] MEDS ORDERED: SODIUM HYPOCHLORITE 0.25% IRRIG 473 ML BOTTLE TOP SCH (09:00)
[2021-07-24] MEDS ORDERED: ISOSORBIDE MONONITRATE 30 MG TABLET PO SCH (09:00)
[2021-07-24] MEDS ORDERED: LORATADINE 10 MG TABLET PO SCH (09:00)
[2021-07-24] MEDS ORDERED: DAPAGLIFLOZIN 10 MG TABLET PO SCH (09:00)
[2021-07-24] MEDS ORDERED: FUROSEMIDE 40 MG TABLET PO SCH (09:00)
[2021-07-24] MEDS: INSULIN LISPRO 100 UNIT/ML SUBCUT SCH (09:47)
[2021-07-24] MEDS: METOPROLOL TARTRATE 50 MG TABLET PO SCH (09:48)
[2021-07-24 12:09] VITALS: BP 103/49
== END 2021-07-24 13:52 | disposition home health service (06) ==
LOC: N.OR 09:45 → N.SDSINP 09:45 → N.5E 14:36
PROVIDERS: ADMIT Surgery; ATTEND Surgery